=== PATIENT | female | born 1950 | race Caucasian/White ===

== ENCOUNTER 2017-12-18 09:25 | Outpatient (CLI) | payer MEDICARE, BC, SELFPAY ==
[2017-12-18 14:19] LABS: TSH 1.54 uIU/mL (0.358-3.74)
== END 2017-12-18 09:45 ==
PROVIDERS: PCP Family Medicine; Visit Provider Family Medicine
DX: E03.9 Hypothyroidism, unspecified (principal)
CPT/HCPCS: 36415; 84443

== ENCOUNTER 2018-08-27 02:02 | Outpatient (CLI) | payer MEDICARE, BC, SELFPAY ==
[2018-08-27 12:26] LABS: TSH 1.64 uIU/mL (0.358-3.74)
== END 2018-08-27 02:22 ==
PROVIDERS: PCP Family Medicine; Visit Provider Family Medicine
DX: E03.9 Hypothyroidism, unspecified (principal)
CPT/HCPCS: 84443

== ENCOUNTER 2019-03-16 11:50 | Outpatient (CLI) | payer MEDICARE, BC, SELFPAY ==
[2019-03-16 13:30] LABS: ALT 24 U/L (14-59); AST 23 U/L (15-37); Albumin 4.1 g/dL (3.4-5.0); Alkaline Phosphatase 82 U/L (46-116); Anion Gap 9.2 mmol/L (3-11); BUN 15 mg/dL (7-18); Bilirubin, Total 0.6 mg/dL (0.2-1.0); CO2 30.8 mmol/L (21.0-32.0); Calcium 9.3 mg/dL (8.5-10.1); Calculated LDL 146 mg/dL; Chloride 104 mmol/L (98-107); Cholesterol 212 mg/dL (<200); Estimated GFR 54.97 (mL/min/1.73m2); Glucose 94 mg/dL (74-106); HDL Cholesterol 47 mg/dL (40-60); Potassium 4.5 mmol/L (3.5-5.1); Sodium 144 mmol/L (136-145); Total Protein 7.4 g/dL (6.4-8.2); Triglyceride 96 mg/dL (<150)
== END 2019-03-16 12:10 ==
PROVIDERS: PCP Family Medicine; Visit Provider Family Medicine
DX: F41.9 Anxiety disorder, unspecified (principal); E03.9 Hypothyroidism, unspecified; Z13.6 Encounter for screening for cardiovascular disorders
CPT/HCPCS: 36415; 80053; 80061

== ENCOUNTER 2019-10-26 03:05 | Outpatient (CLI) | payer MEDICARE, BC, SELFPAY | END 2019-10-26 03:25 | PROVIDERS: PCP Family Medicine; Visit Provider Family Medicine | DX: E03.9 Hypothyroidism, unspecified (principal) | CPT/HCPCS: 36415; 84443 ==

== ENCOUNTER 2020-01-05 01:34 | Outpatient (CLI) | payer MEDICARE, BC, SELFPAY ==
[2020-01-05 11:42] LABS: TSH 1.82 uIU/mL (0.36-3.74)
== END 2020-01-05 01:54 ==
PROVIDERS: PCP Family Medicine; Visit Provider Family Medicine
DX: E03.9 Hypothyroidism, unspecified (principal)
CPT/HCPCS: 36415; 84443

== ENCOUNTER 2020-07-20 03:57 | Outpatient (CLI) | payer MEDICARE, BC, SELFPAY ==
--- NOTE | 2020-07-20 11:50 | DI.MAMMO_ITS ---
EXAM: MAMMO SCREENING CLINICAL HISTORY: screening,Z12.39 TECHNIQUE: Mammograms were interpreted according to the usual protocol including computer analysis w [employer] CAD system, tomosynthesis and C-view imaging. COMPARISON: 2011 through 2017 FINDINGS: The breasts are composed of scattered fibroglandular densities, Breast Density category B. No suspicious masses or suspicious microcalcifications are seen. No skin thickening or abnormal axillary lymph nodes are seen. There has been no significant change from prior exams. IMPRESSION: BI-RADS Category 1, Negative mammogram Yearly screening mammography is recommended. Breast Density - Category B, scattered fibroglandular densities. A negative radiographic report should not delay biopsy if a dominant or clinically suspicious mass is present. Up to ten percent of cancers are not identified on mammography. A negative report may reinforce clinical impression. Adenosis and dense breasts may obscure an underlying neoplasm. False positive reports average 6 to 10%. Patient will receive a letter notifying them of these results.
== END 2020-07-20 04:17 ==
PROVIDERS: PCP Family Medicine; Visit Provider Family Medicine
DX: Z12.31 Encounter for screening mammogram for malignant neoplasm of breast (principal)
CPT/HCPCS: 77063; 77067

== ENCOUNTER 2020-10-10 10:47 | Outpatient (CLI) | payer MEDICARE, BC, SELFPAY ==
[2020-10-10 12:47] LABS: ALT 26 U/L (14-59); AST 18 U/L (15-37); Albumin 4.1 g/dL (3.4-5.0); Alkaline Phosphatase 72 U/L (46-116); BUN 17 mg/dL (7-18); Bilirubin, Total 0.7 mg/dL (0.2-1.0); CREATININE 1.1 mg/dL (0.55-1.02); Calcium 9.2 mg/dL (8.5-10.1); Chloride 107 mmol/L (98-107); Glucose 96 mg/dL (74-106); Potassium 4.4 mmol/L (3.5-5.1); Sodium 144 mmol/L (136-145); TSH 0.61 uIU/mL (0.36-3.74); Total Protein 7.3 g/dL (6.4-8.2)
[2020-10-10 20:38] LABS: Calculated LDL 112 mg/dL (<100); Cholesterol 192 mg/dL (<200); HDL Cholesterol 46 mg/dL (40-60); Triglyceride 170 mg/dL (<150)
== END 2020-10-10 10:48 | disposition home or self-care (01) ==
LOC: LOS 10:47
PROVIDERS: PCP Family Medicine; Visit Provider Family Medicine
DX: E03.9 Hypothyroidism, unspecified (principal); I10 Essential (primary) hypertension
CPT/HCPCS: 36415; 80053; 80061; 84443

== ENCOUNTER 2022-01-21 02:31 | Outpatient (CLI) | payer MEDICARE, BC, SELFPAY ==
[2022-01-21 10:18] LABS: Anion Gap 8.3 mmol/L (3-11); BUN 22 mg/dL (7-18); CO2 30.7 mmol/L (21.0-32.0); CREATININE 1.2 mg/dL (0.55-1.02); Calcium 9.4 mg/dL (8.5-10.1); Calculated LDL 141 mg/dL (<100); Chloride 103 mmol/L (98-107); Cholesterol 222 mg/dL (<200); Estimated GFR 48.09 (mL/min/1.73m2); Glucose 96 mg/dL (74-106); HDL Cholesterol 62 mg/dL (40-60); Potassium 3.9 mmol/L (3.5-5.1); Sodium 142 mmol/L (136-145); TSH (W/Ref FT4) 0.61 uIU/mL (0.36-3.74); Triglyceride 95 mg/dL (<150)
== END 2022-01-21 02:32 | disposition home or self-care (01) ==
LOC: LBO 02:32
PROVIDERS: PCP Family Medicine; Visit Provider Family Medicine
DX: I10 Essential (primary) hypertension (principal); Z00.00 Encounter for general adult medical examination without abnormal findings; E03.9 Hypothyroidism, unspecified; E66.09 Other obesity due to excess calories; Z68.32 Body mass index [BMI] 32.0-32.9, adult
CPT/HCPCS: 36415; 80048; 80061; 84443

== ENCOUNTER 2022-04-18 01:17 | Outpatient (CLI) | payer MEDICARE, BC, SELFPAY ==
[2022-04-18 12:26] LABS: Anion Gap 7.9 mmol/L (3-11); BUN 27 mg/dL (7-18); CO2 29.1 mmol/L (21.0-32.0); CREATININE 1.2 mg/dL (0.55-1.02); Calcium 9.5 mg/dL (8.5-10.1); Chloride 104 mmol/L (98-107); Estimated GFR 48.09 (mL/min/1.73m2); Glucose 99 mg/dL (74-106); Sodium 141 mmol/L (136-145)
[2022-04-18 12:29] LABS: Bilirubin Negative (Negative); Blood Trace-intact (Negative); Clarity Clear (Clear); Glucose Negative (Negative); Ketones Negative (Negative); Leukocyte Esterase Negative (Negative); Nitrite Negative (Negative); Specific Gravity 1.015 (1.005-1.025); Urobilinogen 0.2 EU/dL (Up TO 0.2)
[2022-04-18 12:45] LABS: Bacteria Rare HPF (Negative); C & S Indicated? No; Casts 0-2 Hyaline LPF (Negative); Crystals Negative HPF (Negative); Epithelial Cells Moderate HPF (Negative); Mucus Negative (Negative); Other Cells Few Transitional (Negative); RBC 0-2 HPF (0-2); WBC 0-2 HPF (0-5)
== END 2022-04-18 01:18 | disposition home or self-care (01) ==
LOC: LOS 01:17
PROVIDERS: PCP Family Medicine; Visit Provider Family Medicine
DX: I12.9 Hypertensive chronic kidney disease with stage 1 through stage 4 chronic kidney disease, or unspecified chronic kidney disease; N18.30 Chronic kidney disease, stage 3 unspecified; R30.0 Dysuria
CPT/HCPCS: 36415; 80048; 81003; 81015

== ENCOUNTER 2022-10-03 00:36 | Outpatient (CLI) | payer MEDICARE, BC, SELFPAY ==
--- NOTE | 2022-10-03 07:45 | DI.MAMMO_ITS ---
Exam(s) MAMMO SCREENING EXAM: MAMMO SCREENING MAMMO SCREENING CLINICAL HISTORY: screening, Z12.39 TECHNIQUE: Mammograms were interpreted according to the usual protocol including computer analysis w [employer] CAD system, tomosynthesis and C-view imaging. COMPARISON: 2014 through 2020 FINDINGS: The breasts are composed of scattered fibroglandular densities, Breast Density category B. No suspicious masses or suspicious microcalcifications are seen. No skin thickening or abnormal axillary lymph nodes are seen. There has been no significant change from prior exams. IMPRESSION: BI-RADS Category 1, Negative mammogram Yearly screening mammography is recommended. Breast Density - Category B, scattered fibroglandular densities. A negative radiographic report should not delay biopsy if a dominant or clinically suspicious mass is present. Up to ten percent of cancers are not identified on mammography. A negative report may reinforce clinical impression. Adenosis and dense breasts may obscure an underlying neoplasm. False positive reports average 6 to 10%. Patient will receive a letter notifying them of these results.
--- NOTE | 2022-10-03 13:05 | DI.DEXA_ITS ---
Exam(s) XR DEXA BONE DENSITY W/WO NARCISO EXAM: XR DEXA BONE DENSITY W/WO NARCISO CLINICAL HISTORY: screening, MENOPAUSAL DISORDER, N95.9 TECHNIQUE: Holo[employer] Horizon C densitometer analysis of left hip, lumbar spine and left forearm. Lat eral survey image of the thoracic and lumbar spine. COMPARISON: No exams were available for comparison FINDINGS: Lateral view of the thoracic and lumbar spine shows no evidence of compression fractures. Bone mineral density measurements of the lumbar spine correspond to a total T-score of -0.2, in the normal range. Bone mineral density measurements of the left hip correspond to a total T-score of -0.2. The femora l neck T-score is -0.4, in the normal range.. The left forearm bone mineral density measurements correspond to a T-score of the distal 3rd of -0.6 , in the normal range.. IMPRESSION: Normal bone mineral density.
== END 2022-10-03 00:56 ==
LOC: DI 00:36
PROVIDERS: PCP Family Medicine; Visit Provider Family Medicine
DX: N95.9 Unspecified menopausal and perimenopausal disorder (principal); Z12.31 Encounter for screening mammogram for malignant neoplasm of breast; Z13.820 Encounter for screening for osteoporosis; R92.8 Other abnormal and inconclusive findings on diagnostic imaging of breast
CPT/HCPCS: 77063; 77067; 77080

== ENCOUNTER 2023-02-04 02:28 | Outpatient (CLI) | payer MEDICARE, BC, SELFPAY ==
[2023-02-04 11:03] LABS: Anion Gap 8.3 mmol/L (3-11); BUN 24 mg/dL (7-18); CO2 28.7 mmol/L (21.0-32.0); CREATININE 1.2 mg/dL (0.55-1.02); Calcium 9.4 mg/dL (8.5-10.1); Calculated LDL 58 mg/dL (<100); Chloride 105 mmol/L (98-107); Cholesterol 131 mg/dL (<200); Glucose 94 mg/dL (74-106); HDL Cholesterol 62 mg/dL (40-60); Potassium 3.9 mmol/L (3.5-5.1); Sodium 142 mmol/L (136-145); TSH (W/Ref FT4) 0.24 uIU/mL (0.36-3.74); Triglyceride 59 mg/dL (<150)
[2023-02-04 11:25] LABS: FREE T4 1.24 ng/dL (0.76-1.46)
== END 2023-02-04 02:29 | disposition home or self-care (01) ==
LOC: LBO 02:28
PROVIDERS: PCP Family Medicine; Visit Provider Family Medicine
DX: Z13.6 Encounter for screening for cardiovascular disorders (principal); Z91.89 Other specified personal risk factors, not elsewhere classified; I12.9 Hypertensive chronic kidney disease with stage 1 through stage 4 chronic kidney disease, or unspecified chronic kidney disease; N18.31 Chronic kidney disease, stage 3a; E03.9 Hypothyroidism, unspecified
CPT/HCPCS: 36415; 80048; 80061; 84439; 84443

== ENCOUNTER 2023-03-19 03:22 | Outpatient (CLI) | payer MEDICARE, BC, SELFPAY ==
[2023-03-19 11:55] LABS: TSH (W/Ref FT4) 0.97 uIU/mL (0.36-3.74)
== END 2023-03-19 03:23 | disposition home or self-care (01) ==
LOC: LBO 03:23
PROVIDERS: PCP Family Medicine; Visit Provider Family Medicine
DX: E03.9 Hypothyroidism, unspecified (principal)
CPT/HCPCS: 36415; 84443

== ENCOUNTER 2024-01-25 02:15 | Outpatient (CLI) | payer MEDICARE, BC, SELFPAY ==
[2024-01-25 12:05] LABS: Anion Gap 8.2 mmol/L (3-11); BUN 31 mg/dL (7-18); CO2 28.8 mmol/L (21.0-32.0); CREATININE 1.3 mg/dL (0.55-1.02); Calcium 9.4 mg/dL (8.5-10.1); Chloride 108 mmol/L (98-107); Estimated GFR 43.15 (mL/min/1.73m2); Glucose 99 mg/dL (74-106); Potassium 4.5 mmol/L (3.5-5.1); Sodium 145 mmol/L (136-145); TSH (W/Ref FT4) 2.06 uIU/mL (0.36-3.74)
== END 2024-01-25 02:16 | disposition home or self-care (01) ==
LOC: LBO 02:15
PROVIDERS: PCP Family Medicine; Visit Provider Family Medicine
DX: I10 Essential (primary) hypertension (principal); I12.9 Hypertensive chronic kidney disease with stage 1 through stage 4 chronic kidney disease, or unspecified chronic kidney disease; N18.31 Chronic kidney disease, stage 3a; E03.9 Hypothyroidism, unspecified
CPT/HCPCS: 36415; 80048; 84443

== ENCOUNTER 2024-02-11 01:08 | Outpatient (CLI) | payer MEDICARE, BC, SELFPAY ==
--- NOTE | 2024-02-11 08:23 | DI.CT_ITS ---
Exam(s) CT ABDOMEN PELVIS W EXAM: CT ABDOMEN PELVIS W CLINICAL HISTORY: RLQ abd pain,r10.31. TECHNIQUE: Imaging Protocol: Axial computed tomography images with coronal and sagittal reformatted images were created and reviewed CONTRAST MATERIAL: Intravenous: Omnipaque 350 Contrast volume:85 ml Oral: yes / COMPARISON: None FINDINGS: ABDOMEN and PELVIS: Lung Bases: Small nodules are noted at the left lower lobe as well as right middle lobe. The largest is 6 millimeters at the periphery of the left lower lobe. Liver: Normal density. No suspicious mass. Gallbladder and biliary tract: Status post cholecystectomy. No biliary dilation. Pancreas: Normal density. No abnormal calcifications or inflammatory process. No evidence of mass. Spleen: Normal. Kidneys: Normal size, contour and axis. No radiodense stones. No obstructive uropathy. No suspicious masses seen. Adrenal glands: No masses seen. Vasculature: Abdominal aorta non-dilated. Atherosclerotic changes. Soft tissues: Unremarkable. Bladder: Empty. Not well evaluated. Bowel: No obstruction. No bowel wall thickening. Appendix is not seen. No right lower quadrant inf lammatory changes. Descending and sigmoid diverticulosis. No evidence of diverticulitis. Peritoneal cavity: No ascites. No focal collection. No mesenteric inflammatory response. Bones: Unremarkable for age. Reproductive organs: Status post hysterectomy. Lymph nodes: No pathologically enlarged lymph nodes. IMPRESSION:: No acute abnormality in the abdomen or pelvis. Bilateral small pulmonary nodules noted at the lung bases. For a low risk patient, for multiple solid noncalcified nodules smaller than 6 mm in diameter, no rou blas follow-up is recommended (grade 2B; weak recommendation, moderate-quality evidence). (Akin weston t al., 2017) For a high risk patient, for multiple solid noncalcified nodules with at least one nodule 6 mm or lar malena in diameter, follow-up is recommended at approximately 3???6 months, followed by an optional seco nd scan at 18???24 months that will depend on estimated risk. (grade 1B; strong recommendation, moder ate-quality evidence). (Akin et al., 2017) Unexpected findings RADIATION DOSE DELIVERED: 484.64mGy.cm Total DLP DATA REPOSITORY: All CT scans at this facility are submitted to the National Radiology Data Registry (NRDR) Dose Index Registry (DIR) with the [employer] (ACR). RADIATION OPTIMIZATION: All CT scans at this facility use at least one of these dose optimization te chniques: automated exposure control; mA and/or kV adjustment per patient size (includes targeted exa ms where dose is matched to clinical indication); or iterative reconstruction.
[2024-02-11 11:49] LABS: Bilirubin Negative (Negative); Blood Trace-lysed (Negative); Clarity Clear (Clear); Glucose Negative (Negative); Ketones Negative (Negative); Leukocyte Esterase Negative (Negative); Nitrite Negative (Negative); Urobilinogen 0.2 mg/dL (Up to 0.2); pH 5.5 (5-8)
[2024-02-11 11:54] LABS: Bacteria Negative HPF (Negative); C & S Indicated? No; Casts Negative LPF (Negative); Crystals Negative HPF (Negative); Epithelial Cells Negative HPF (Negative); Mucus Negative (Negative); RBC 0-2 HPF (0-2); WBC Negative HPF (0-5)
[2024-02-11 11:58] LABS: Abs Immature Grans 0.01 10^3/uL (0.0-0.06); Absolute Basophil Count 0.05 10^3/uL (0.0-0.2); Absolute Eosinophil Count 0.28 10^3/uL (0.0-0.7); Absolute Lymphocyte Count 1.32 10^3/uL (1.2-3.4); Absolute Monocyte Count 0.56 10^3/uL (0.1-0.8); Absolute Neutrophil Count 3.83 10^3/uL (1.2-6.7); Basophils % 0.8 %; Eosinophils % 4.6 %; HCT 42.9 % (36.0-46.0); Immature Grans % 0.2 %; Lymphocytes % 21.8 %; MCH 29.9 pg (27.0-33.0); MCHC 32.6 % (32.0-36.0); MCV 92 fL (80-95); MPV 9.7 fL (8.0-11.0); Monocytes % 9.3 %; Neutrophils % 63.3 %; Platelet Count 236 10^3/uL (130-400); RBC 4.69 10^6/uL (3.93-5.22); RDW 12.9 % (11.7-14.6); RDW-SD 42.8 fL; WBC 6.05 10^3/uL (4.4-10.8)
[2024-02-11] MEDS: Barium Sulfate 2% W/V-Berry Smoothie 450 ML BTL PO ×2 (12:03→12:04)
[2024-02-11 12:22] LABS: ALT 30 U/L (14-59); AST 24 U/L (15-37); Albumin 4.1 g/dL (3.4-5.0); Alkaline Phosphatase 86 U/L (46-116); Anion Gap 8.3 mmol/L (3-11); BUN 25 mg/dL (7-18); Bilirubin, Total 0.93 mg/dL (0.2-1.0); CO2 29.7 mmol/L (21.0-32.0); CREATININE 1.4 mg/dL (0.55-1.02); Calcium 9.4 mg/dL (8.5-10.1); Chloride 106 mmol/L (98-107); Estimated GFR 39.48 (mL/min/1.73m2); Glucose 105 mg/dL (74-106); Potassium 4.2 mmol/L (3.5-5.1); Sodium 144 mmol/L (136-145); Total Protein 7.9 g/dL (6.4-8.2)
[2024-02-11] MEDS: Normal Saline - Diluent 50 ML VIAL IJ (13:43)
[2024-02-11] MEDS: Omnipaque 350 MG/ML 100 ML BTL IJ (13:44)
== END 2024-02-11 01:28 ==
LOC: DI 01:08
PROVIDERS: PCP Family Medicine; Visit Provider Family Medicine
DX: R30.0 Dysuria (principal); R10.31 Right lower quadrant pain; Z00.00 Encounter for general adult medical examination without abnormal findings; R91.8 Other nonspecific abnormal finding of lung field
CPT/HCPCS: 80053; 74177; 81003; 81015; 85025; J3490

== ENCOUNTER 2024-05-16 01:31 | Outpatient (CLI) | payer MEDICARE, BC, SELFPAY ==
--- NOTE | 2024-05-16 06:45 | DI.CT_ITS ---
Exam(s) CT CHEST WO EXAM: CT CHEST WO CLINICAL HISTORY: F/u abd/pelvis CT,lung nodule,r91.1. TECHNIQUE: Imaging protocol: Axial computed tomography images were obtained and coronal and sagittal reformatted images were created and reviewed. Lung Computer Aided Detection (CAD) was utilized. COMPARISON: CT CT ABDOMEN PELVIS W from 02/11/2024 FINDINGS: Tracheobronchial tree: Patent where visualized. No bronchiectasis is present. Pulmonary parenchyma: There are multiple bilateral noncalcified pulmonary nodules present. The large st nodules measure 6 mm. There is also a reticular nodular infiltrate in the right upper lobe and th e left upper lobe. No focal consolidating infiltrates are seen. Mediastinum and Enedina: There are mediastinal lymph nodes present. The largest is in the subcarinal re gion and measures 1.6 cm. The lymph nodes are mildly hyperdense. The esophagus is unremarkable. Pleura: No effusion or pneumothorax. Heart: The heart is not dilated. No coronary artery calcifications are seen. No pericardial effusion. Aorta: Thoracic aorta non-dilated. Atherosclerotic calcification is present. Upper abdomen: Status post cholecystectomy. Lymph nodes: No significant axillary adenopathy is present. Soft tissues: Unremarkable. Bones:Within normal limits for the patient's age. IMPRESSION: Multiple pulmonary nodules and mediastinal lymph nodes. Differential considerations include infectio us or inflammatory process. Neoplasm or primary lung carcinoma should also be considered. Follow-up evaluation may include PET scan. Unexpected findings RADIATION DOSE DELIVERED: 177.69mGy.cm Total DLP 177.69mGy.cm Total DLP DATA REPOSITORY: All CT scans at this facility are submitted to the National Radiology Data Registry (NRDR) Dose Index Registry (DIR) with the [employer] (ACR). RADIATION OPTIMIZATION: All CT scans at this facility use at least one of these dose optimization te chniques: automated exposure control; mA and/or kV adjustment per patient size (includes targeted exa ms where dose is matched to clinical indication); or iterative reconstruction.
== END 2024-05-16 01:51 ==
LOC: DI 01:31
PROVIDERS: PCP Family Medicine; Visit Provider Family Medicine
DX: R91.8 Other nonspecific abnormal finding of lung field (principal)
CPT/HCPCS: 71250

== ENCOUNTER 2024-08-08 04:39 | Outpatient (CLI) | payer MEDICARE, BC, SELFPAY ==
[2024-08-08 12:59] LABS: Abs Immature Grans 0.01 10^3/uL (0.0-0.06); Absolute Basophil Count 0.03 10^3/uL (0.0-0.2); Absolute Eosinophil Count 0.32 10^3/uL (0.0-0.7); Absolute Lymphocyte Count 1.48 10^3/uL (1.2-3.4); Absolute Monocyte Count 0.67 10^3/uL (0.1-0.8); Absolute Neutrophil Count 4.01 10^3/uL (1.2-6.7); Basophils % 0.5 %; Eosinophils % 4.9 %; HCT 40.9 % (36.0-46.0); HGB 13.6 g/dL (11.2-15.7); Immature Grans % 0.2 %; Lymphocytes % 22.7 %; MCH 29.4 pg (27.0-33.0); MCHC 33.3 % (32.0-36.0); MCV 88 fL (80-95); Monocytes % 10.3 %; Neutrophils % 61.4 %; Platelet Count 253 10^3/uL (130-400); RBC 4.63 10^6/uL (3.93-5.22); RDW 13.1 % (11.7-14.6); RDW-SD 42.5 fL; WBC 6.52 10^3/uL (4.4-10.8)
[2024-08-08 13:15] LABS: ALT 24 U/L (14-59); AST 23 U/L (15-37); Albumin 4.1 g/dL (3.4-5.0); Alkaline Phosphatase 87 U/L (46-116); Anion Gap 8.1 mmol/L (3-11); BUN 30 mg/dL (7-18); Bilirubin, Total 0.8 mg/dL (0.2-1.0); CO2 27.9 mmol/L (21.0-32.0); CREATININE 1.4 mg/dL (0.55-1.02); Calcium 9.8 mg/dL (8.5-10.1); Chloride 106 mmol/L (98-107); Estimated GFR 39.48 (mL/min/1.73m2); Glucose 106 mg/dL (74-106); Potassium 4.5 mmol/L (3.5-5.1); Sodium 142 mmol/L (136-145); Total Protein 7.7 g/dL (6.4-8.2)
[2024-08-08 22:36] LABS: Parathyroid Hormone,Intact 73 pg/mL (19-88)
[2024-08-09 19:11] LABS: Vitamin D 25 Total 20 ng/mL (30-100)
[2024-08-10 16:26] LABS: Cystatin C, S 1.51 mg/L; eGFR by Cystatin C 40 mL/min/BSA (>60)
== END 2024-08-08 04:40 | disposition home or self-care (01) ==
LOC: LBO 04:39
PROVIDERS: PCP Family Medicine; Visit Provider Family Medicine
DX: I12.9 Hypertensive chronic kidney disease with stage 1 through stage 4 chronic kidney disease, or unspecified chronic kidney disease; N18.31 Chronic kidney disease, stage 3a
CPT/HCPCS: 36415; 80053; 82306; 82610; 83970; 85025

== ENCOUNTER 2024-08-29 04:30 | Outpatient (CLI) | payer MEDICARE, BC, SELFPAY ==
[2024-08-29] MEDS: Inhaler, Assist Device 1 EACH MC (14:41)
[2024-08-29] MEDS: Methacholine 100 MG VIAL IH (14:41)
[2024-08-29] MEDS: Levalbuterol HFA 15 GM INH 4 PUFF IH (14:41)
--- NOTE | 2024-09-18 09:29 | W.PFT ---
Date of service: 08/29/24 Time of Service: 12:53 Pulmonary Function Test Result Indications: Shortness of breath Interpretation Spirometry: No airflow limitation at baseline. There was a 22% decrease in FEV1 with administration of 0.5mg/mL methacholine. Lung Volumes: Normal lung volumes Diffusion Capacity: Reduced diffusion Airway Pressure: Normal airways resistance Impression Normal pulmonary function at baseline but a positive methacholine challenge. Clinical Correlation therefore is recommended.
== END 2024-08-29 04:31 | disposition home or self-care (01) ==
PROVIDERS: PCP Family Medicine; Visit Provider Student in an Organized Health Care Education/Training Program
DX: R91.1 Solitary pulmonary nodule (principal); R06.00 Dyspnea, unspecified
CPT/HCPCS: 94070; 94726; 94729; 95070; J7674

== ENCOUNTER → 2024-09-12 12:19 | Outpatient (BNVA) | payer MEDICARE, BC, SELFPAY | PROVIDERS: PCP Family Medicine; Referring Provider Family Medicine; Visit Provider Physician Assistant Surgical | DX: L30.9 Dermatitis, unspecified (principal); R91.1 Solitary pulmonary nodule; J45.909 Unspecified asthma, uncomplicated | CPT/HCPCS: 99214 ==

== ENCOUNTER 2024-10-05 03:06 | Outpatient (CLI) | payer MEDICARE, BC, SELFPAY ==
--- NOTE | 2024-10-05 07:11 | DI.MAMMO_ITS ---
Exam(s) MAMMO SCREENING EXAM: MAMMO SCREENING CLINICAL HISTORY: screening,Z12.39 TECHNIQUE: Mammograms were interpreted according to the usual protocol including computer analysis with CAD system, tomosynthesis and C-view imaging. COMPARISON: 2017 through 2022 FINDINGS: The breasts are composed of scattered fibroglandular densities, Breast Density category B. No suspicious masses or suspicious microcalcifications are seen. No skin thickening or abnormal axillary lymph nodes are seen. There has been no significant change from prior exams. IMPRESSION: BI-RADS Category 1, Negative mammogram Yearly screening mammography is recommended. Breast Density - Category B - There are scattered areas of fibroglandular density. Breast density Category C or D implies that the patient has dense breast tissue. Dense breast tissue can make it harder to find cancer on a mammogram. Dense breast tissue is also associated with an increased risk of breast cancer. This information about the result of the mammogram report was provided to the patient to raise their awareness. Use this report when you speak with the patient about their risks for breast cancer, which includes their family history. At that time, you may recommend additional screening tests (Ultrasound or MRI) as these tests may add significant information. A negative radiographic report should not delay biopsy if a dominant or clinically suspicious mass is present. Up to ten percent of cancers are not identified on mammography. A negative report may reinforce clinical impression. Adenosis and dense breasts may obscure an underlying neoplasm. False positive reports average 6 to 10%. Patient will receive a letter notifying them of these results.
== END 2024-10-05 03:26 ==
LOC: DI 03:06
PROVIDERS: PCP Family Medicine; Visit Provider Family Medicine
DX: Z12.31 Encounter for screening mammogram for malignant neoplasm of breast (principal); R92.323 Mammographic fibroglandular density, bilateral breasts
CPT/HCPCS: 77063; 77067

== ENCOUNTER 2024-10-05 03:07 | Outpatient (CLI) | payer MEDICARE, BC, SELFPAY ==
--- NOTE | 2024-10-05 06:45 | DI.CT_ITS ---
Exam(s) CT CHEST WO EXAM: CT CHEST WO CLINICAL HISTORY: follow up LUNG NODULE,R91.1 TECHNIQUE: Imaging Protocol: Axial computed tomography images with coronal and sagittal reformatted images were created and reviewed. Computer aided detection (CAD) was utilized. CONTRAST MATERIAL: Intravenous: Omnipaque 350 Contrast volume:structured data ml. COMPARISON: CT CT ABDOMEN PELVIS W from 02/11/[address] CHEST WO from 05/16/2024 FINDINGS: Pulmonary parenchyma: No consolidation. Stable multiple bilateral pulmonary nodules. Stable reticulonodular opacities in the upper lobes, right greater than left. Tracheobronchial tree: No bronchiectasis or mucous plugging. Mediastinum and Enedina: Stable size of mediastinal lymph nodes. Pleura: No effusion. No pneumothorax. Heart: The heart is not dilated. No coronary artery calcifications are seen. Aorta: Thoracic aorta non-dilated. Mild atherosclerotic changes. Pulmonary arteries: No gross evidence of emboli. Upper abdomen: No acute findings. Bones: Degenerative changes in the spine. Soft tissues: Unremarkable. IMPRESSION: Stable appearance of multiple bilateral pulmonary nodules and bilateral upper lobe reticulonodular opacities. Stable mediastinal adenopathy. The findings are likely secondary to a chronic inflammatory process. RADIATION DOSE DELIVERED: 174.49mGy.cm Total DLP DATA REPOSITORY: All CT scans at this facility are submitted to the National Radiology Data Registry (NRDR) Dose Index Registry (DIR) with the [employer] (ACR). RADIATION OPTIMIZATION: All CT scans at this facility use at least one of these dose optimization techniques: automated exposure control; mA and/or kV adjustment per patient size (includes targeted exams where dose is matched to clinical indication); or iterative reconstruction.
== END 2024-10-05 03:27 ==
LOC: DI 03:07
PROVIDERS: PCP Family Medicine; Visit Provider Physician Assistant Surgical
DX: R91.8 Other nonspecific abnormal finding of lung field (principal)
CPT/HCPCS: 71250; 77063; 77067

== ENCOUNTER → 2024-11-16 12:31 | Outpatient (BNVA) | payer MEDICARE, BC, SELFPAY | PROVIDERS: PCP Family Medicine; Referring Provider Family Medicine; Visit Provider Physician Assistant Surgical | DX: L30.9 Dermatitis, unspecified (principal); R91.1 Solitary pulmonary nodule; J45.909 Unspecified asthma, uncomplicated | CPT/HCPCS: 99214 ==

== ENCOUNTER → 2025-02-08 01:21 | Outpatient (CLI) | payer MEDICARE, BC, SELFPAY ==
--- NOTE | 2025-02-08 07:15 | DI.CT_ITS ---
Exam(s) CT CHEST W EXAM: CT CHEST W CLINICAL HISTORY: F/U LUNG NODULE,? NEOPLASM TECHNIQUE: Imaging Protocol: Axial computed tomography images with coronal and sagittal reformatted images were created and reviewed. Computer aided detection (CAD) was utilized. CONTRAST MATERIAL: Intravenous: Omnipaque 350 Contrast volume:structured data ml. COMPARISON: CT CT CHEST WO from 05/16/[address] CHEST WO from 10/05/2024 FINDINGS: Pulmonary parenchyma: Again noted are multiple bilateral pulmonary nodules. Few of the nodules appear to have decreased in prominence when compared the previous exams reticulonodular infiltrates are also present in the upper lobes which also appear stable.. No consolidation. No dominant measurable mass. Tracheobronchial tree: No bronchiectasis or mucous plugging. Mediastinum and Enedina: Stable mildly enlarged mediastinal and hilar lymph nodes. Pleura: No effusion. No pneumothorax. Heart: The heart is not dilated. No coronary artery calcifications are seen. Aorta: Thoracic aorta non-dilated. Mild atherosclerotic changes. Pulmonary arteries: No gross evidence of emboli. Upper abdomen: No acute findings. Bones: Degenerative changes in the spine. Soft tissues: Unremarkable. IMPRESSION: Multiple pulmonary nodules and reticular nodular upper lobe infiltrates. A few of the nodules have decreased in size. The findings are likely secondary to chronic infectious or inflammatory process. No findings suggestive malignancy. RADIATION DOSE DELIVERED: 120.99mGy.cm Total DLP DATA REPOSITORY: All CT scans at this facility are submitted to the National Radiology Data Registry (NRDR) Dose Index Registry (DIR) with the [employer] (ACR). RADIATION OPTIMIZATION: All CT scans at this facility use at least one of these dose optimization techniques: automated exposure control; mA and/or kV adjustment per patient size (includes targeted exams where dose is matched to clinical indication); or iterative reconstruction.
[2025-02-08 10:06] LABS: Anion Gap 9.5 mmol/L (3-11); BUN 27 mg/dL (9-23); CO2 27.5 mmol/L (20.0-31.0); Calcium 9.3 mg/dL (8.3-10.6); Chloride 107 mmol/L (98-107); Glucose 92 mg/dL (74-106); Potassium 4.2 mmol/L (3.5-5.1); Sodium 144 mmol/L (136-145)
[2025-02-08 10:10] LABS: TSH (W/Ref FT4) 0.23 uIU/mL (0.55-4.78)
[2025-02-08] MEDS: Normal Saline - Diluent 50 ML VIAL IJ (10:33)
[2025-02-08] MEDS: Omnipaque 350 MG/ML 100 ML BTL IJ (10:34)
[2025-02-08] MEDS: Normal Saline Flush 10 ML SYR IVP (10:34)
== END ==
LOC: DI 01:21
PROVIDERS: PCP Family Medicine; Visit Provider Physician Assistant Surgical
DX: E03.9 Hypothyroidism, unspecified (principal); I10 Essential (primary) hypertension; I12.9 Hypertensive chronic kidney disease with stage 1 through stage 4 chronic kidney disease, or unspecified chronic kidney disease; N18.31 Chronic kidney disease, stage 3a; R91.1 Solitary pulmonary nodule
CPT/HCPCS: 80048; 71260; 82565; 84439; 84443; J3490

== ENCOUNTER → 2025-02-15 13:45 | Outpatient (BNVA) | payer MEDICARE, BC, SELFPAY | PROVIDERS: PCP Family Medicine; Referring Provider Family Medicine; Visit Provider Physician Assistant Surgical | DX: J45.909 Unspecified asthma, uncomplicated (principal); R91.1 Solitary pulmonary nodule; L30.9 Dermatitis, unspecified | CPT/HCPCS: 99214 ==

== ENCOUNTER 2025-03-14 11:17 | Day surgery (SDC) | payer MEDICARE, BC, SELFPAY ==
[2025-03-14] VITALS (12 sets, daily range): BP systolic 112–141; BP diastolic 56–79; PULSE 83–89; RESP 16–22; TEMP 36–36.4; O2SAT 96–100; BMI 30.7
[2025-03-14] MEDS: Normal Saline Flush 10 ML SYR IV (12:05)
--- NOTE | 2025-03-14 12:36 | W.ANESPRE ---
General Info Date of Service Date Performed: 03/14/25 Height: 5 ft 0.75 in Weight: 73.2 kg Body Mass Index (BMI): 30.7 Surgical Procedure: Operation Date: 03/14/25 13:10 Proposed Procedure Side Surgeon p Bronchoscopy with SANDIP Trinh MD Meds Allergies and Home Medications Allergies Allergy/AdvReac Type Severity Reaction Status Date / Time No Known Allergies Allergy Verified 03/14/25 11:51 Home Medication ?Medication ?Instructions ?Recorded cholecalciferol (vitamin D3) 50 50 mcg PO DAILY #90 caps 08/12/24 mcg (2,000 unit) capsule triamcinolone acetonide 0.1 % 1 applic topical BID #15 grams 08/12/24 topical cream albuterol sulfate 90 mcg/actuation 2 puff inhalation Q4H PRN 09/12/24 aerosol inhaler (Ventolin HFA) shortness of breath or wheezing #8.5 grams atorvastatin 40 mg tablet 40 mg PO QHS #90 tabs 01/02/25 budesonide-formoterol HFA 160 2 puff inhalation BID #10.2 grams 02/15/25 mcg-4.5 mcg/actuation aerosol inhaler (Symbicort) levothyroxine 100 mcg tablet 100 mcg PO DAILY #90 tabs 02/17/25 lisinopril 10 1 tab PO DAILY #90 tabs 02/17/25 mg-hydrochlorothiazide 12.5 mg tablet famotidine 20 mg tablet 20 mg PO HS PRN 03/13/25 Current Visit Medications: Current Medications Generic Name Dose Route Start Last Admin Trade Name Freq PRN Reason Stop Dose Admin Albuterol Sulfate 2.5 mg 03/14/25 06:00 Albuterol 2.5 Mg/3 Ml Inh Soln Vial UPD 03/14/25 23:59 TODAY SETH Ringer's Solution 1,000 mls @ 80 mls/hr 03/14/25 06:00 IV 03/14/25 23:59 INFUSION SETH Lidocaine HCl 2 ml 03/14/25 06:00 Lidocaine 2% Pres-Free 2 Ml Vial IJ 03/14/25 23:59 DIRECTED SETH Sodium Chloride 0 ml 03/14/25 06:00 03/14/25 12:05 Normal Saline Flush 10 Ml Syr IV 03/14/25 23:59 10 ml PRN PRN Administration Sodium Chloride 0 ml 03/14/25 06:00 Normal Saline 10 Ml Vial IJ 03/14/25 23:59 DIRECTED PRN Sterile Water 0 ml 03/14/25 06:00 Water,Injection,Sterile 10 Ml Vial IJ 03/14/25 23:59 DIRECTED PRN PFSH Active Problems Active Problems: Problem Status Onset Code Asthma Chronic J45.909 Chronic eczema Acute L30.9 Lung nodule Acute R91.1 Skin lesion of scalp Acute ~01/2024 L98.9 Hypertensive kidney disease with CKD stage III Chronic I12.9, N18.30 Obesity with serious comorbidity Chronic E66.9 At risk for cardiovascular event Chronic Z91.89 Essential hypertension Chronic I10 Hypothyroidism Chronic 06/21/12 E03.9 Chronic osteoarthritis Chronic M19.90 Medical History Medical History Vitreous detachment Anxiety Surgical History Surgical History S/P vaginal hysterectomy for endometriosis with right oophorectomy Status post cholecystectomy Tobacco Smoking/Tobacco Use Status: Never Passive smoking exposure: No Second hand exposure: Yes Alcohol Alcohol Intake: never Substance Use Substance use: Never Substance use type: does not use Vital Signs and Lab Results Vital Signs Most Recent Vital Signs in EMR: Most Recent Vital Signs Temp Pulse Resp BP Pulse Ox 36.2 C L 85 16 141/79 H 96 03/14/25 11:52 03/14/25 11:52 03/14/25 11:52 03/14/25 11:52 03/14/25 11:52 Imaging and Studies Imaging and Studies Study information below may be from another EMR and interpreted by another provider. Please see original notes in EMR for more complete details. Pulmonary Function Summary: 09/21:Pulmonary Function Test Result Indications: Shortness of breath Interpretation Spirometry: No airflow limitation at baseline. There was a 22% decrease in FEV1 with administration of 0.5mg/mL methacholine. Lung Volumes: Normal lung volumes Diffusion Capacity: Reduced diffusion Airway Pressure: Normal airways resistance Impression Normal pulmonary function at baseline but a positive methacholine challenge. Clinical Correlation therefore is recommended. Anesthesia Assessment and Plan Anesthesia History Personal History: Delayed Emergence Family History: No Family History of Anesthesia Complications Exercise Tolerance Exercise Tolerance: Metabolic Equivalents>4 Pertinent Negatives Pertinent Negatives: No Symptoms of GERD Cardiac & Pulmonary Exam Cardiac Exam: Normal S1/S2 Heart Sounds Pulmonary Exam: Clear Bilateral Breath Sounds Implantable Cardiac Device Does patient have a Pacemaker or an ICD?: No Airway Exam Known Difficult Airway: No Mallampati Class: 2 Mouth Opening: Normal (> 3cm) Thyromental Distance: Greater than 3 cm Neck Range of Motion: Full ROM Neck Circumference: Normal Teeth Condition: Removable Dentures/Plates Upper and Removable Dentures/Plates Lower ASA Classification ASA Score: ASA 2 Emergency Case?: No NPO Status NPO Status: NPO Clears >2 hours, Solids >8 hours Anesthesia Plan Resuscitation Status: Full Code Anesthesia Technique: General Anesthesia Airway Planned: Endotracheal Tube Monitors Used: Standard Monitors
[2025-03-14] MEDS: Albuterol 2.5 MG/3 ML INH SOLN VIAL UPD (12:45)
[2025-03-14] MEDS: Lidocaine 2% Pres-Free 2 ML VIAL IJ (12:45)
--- NOTE | 2025-03-14 12:55 | W.PM.OP ---
Operative Note Operative Note PRE-OP DIAGNOSIS: Mediastinal lymphadenopathy, pulmonary nodules, pulmonary infiltrates PROCEDURE: Flexible video bronchoscopy with endobronchial ultrasound (EBUS) and ultrasound guided transbronchial needle aspiration of lymph nodes in stations 10L, 7, 4R] SURGEON: Sourav Trinh ANESTHESIA TYPE: General LMA/ETT (Under the direction of the anesthesiolgy team and as per the anesthesia record) Refer to Anesthesia Record ESTIMATED BLOOD LOSS: 8 (mL) PATHOLOGY: other (Transbronchial needle aspirate of lymph nodes in stations 10L, 7, 4R sent for cytopathology, flow cytometry, and bacterial/fungal/afb cultures.) Procedure Description: The procedure risks, benefits, and alternatives were discussed with the patient. The patient understood and informed consent was obtained. Laboratory studies and radiographs were reviewed. A time-out was performed. Following induction of general anesthesia, the patient was ventilated through an 8.0 ET tube. The video bronchoscope was introduced through the ET tube and into the trachea. The trachea appeared normal and the main marvin was sharp. The right and left bronchial trees were visualized to the segmental level and appeared normal. The video bronchoscope was withdrawn and the EBUS scope was inserted into the airway without difficulty. Endobronchial ultrasound was used to examine, measure, and guide the sampling of lymph nodes as follows: 1. Biopsy: Station 10L. The largest lymph node measured 0.9 cm in short axis. The node was isoechoic and the capsule was intact. Under EBUS guidance, 5 transbronchial needle aspirates were performed at this station. This lymph node measured 1.[address] scan. Rapid onsite cytology was non-diagnostic. Samples were sent for cytopathology and flow cytometry 2. Biopsy: Station 7. The largest lymph node measured 1.6 cm in short axis. The node was isoechoic and the capsule was intact. Under EBUS guidance, 6 transbronchial needle aspirates were performed at this station. This lymph node measured 1.[address] scan. Rapid onsite cytology was non-diagnostic. Samples were sent for cytopathology and bacterial/fungal/afb cultures 3. Biopsy: Station 4R. The largest lymph node measured 1.2 cm in short axis. The node was isoechoic and the capsule was intact. Under EBUS guidance, 3 transbronchial needle aspirates were performed at this station. This lymph node measured 1.[address] scan. Rapid onsite cytology demonstrated the presence of lymphocytes. Samples were sent for cytopathology At this point, the EBUS scope was withdrawn from the airway and the conventional flexible video bronchoscope was reinserted. A second survey of the accessible airway was performed to ensure hemostasis, which was adequate. 50 mL of saline was injected into the medial segment of the RML and ~20 mL of BAL fluid was collected. Fluid was sent for bacterial/fungal/afb cultures, cell count, cytopathology, and aspergillus Ag. The patient was recovered under the direction of the anesthesiology team and transported to the recovery area. The results of the procedure will be discussed with the patient and appropriate follow up will be arranged. Date of Procedure: 03/14/25
[2025-03-14] MEDS: Lactated Ringers 1,000 ML 30 ML IV (13:15)
--- NOTE | 2025-03-14 14:25 | PAPNONF_PTH ---
PATIENT: Ellen Bacon LOC: [facility] U#:[id number] AGE/SX: 74/F ROOM: RE03/14/[address]: Sourav Trinh : 1950 BED: DIS: 03/14/2025 SPEC #: [id number] RECD: 03/14/25 18:23 STATUS: SOHAIL REQ #: [id number] FRANKIE: 03/14/25 14:[address]: Sourav Trinh DEPT: [facility] Cytology RECD BY: Beth Bustamante ENTERED: 03/14/25 18:26 SP TYPE: DARÍO BARROW DR: Barbara Sr Tissues: 1 - BODY FLUID CYTO-FINE NEEDLE ASPIRATE-[facility] 2 - BODY FLUID CYTO-FINE NEEDLE ASPIRATE-[facility] 3 - BODY FLUID CYTO-FINE NEEDLE ASPIRATE-[facility] 4 - BODY FLUID CYTO(NOT S/U/N/EM)[facility] 5 - FLOW CYTOMETRY NODE/TISSUE Procedures: BODY FLUID CYTO(NOT SPU/UR/NIP/ENDOM)[facility] FLOW CYTOMETRY LYMPHOMA PNL BODY FLUID CYTO-FINE NEEDLE ASPIRATE-[facility] Comments: [id number] (PATH FNA EBUS CONSULT) (REFRIGERATED) (FLOW CYTOMETRY [id number])
[2025-03-14] MEDS: Lidocaine 1% Multi-Dose W/EPI 1/100,000 50 ML VIAL (14:33)
--- NOTE | 2025-03-14 16:22 | W.ANESPOSTOP ---
Postoperative Evaluation Date, Time and Location Date Performed: 03/14/25 Time Performed: 15:54 Patient Location: Day Surgery Unit Vital Signs Most Recent Imported Vital Signs: Most Recent Vital Signs Temp Pulse Resp BP Pulse Ox 36.1 C L 85 16 112/63 99 03/14/25 15:02 03/14/25 15:02 03/14/25 15:02 03/14/25 15:02 03/14/25 15:02 Pain Score Most Recent Pain Score: Most Recent Pain Score Pain Level 0 03/14/25 15:02 Assessment Mental Status: Awake (Alert & Oriented to Patient Baseline) Airway and Respiratory Function: Patent airway with normal (patient baseline) respiratory exam Cardiovascular Function: Hemodynamically Stable Hydration Status: Adequately Hydrated Nausea & Vomiting: No Nausea or Vomiting Pain: Pt. Denies Any Pain Peripheral Nerve Block: Patient did not receive a nerve block
== END 2025-03-14 16:00 | disposition home or self-care (01) ==
PROVIDERS: PCP Family Medicine; Visit Provider Internal Medicine Pulmonary Disease
PROC: BB4BZZZ Ultrasonography of Pleura (ICD-10-PCS; CPT 31653; principal; 2025-03-14 13:00)
DX: R59.1 Generalized enlarged lymph nodes (principal); R91.1 Solitary pulmonary nodule
CPT/HCPCS: 31653; 80162; 87070; 87102; 87116; 87205; 87206; 87305; 88104; 88184; 88185; 94640; J1100; J1805; J2003; J2004; J2405; J2704; J3010; J7613